=== PATIENT | male | born 1960 | race Caucasian/White ===

== ENCOUNTER 2024-06-17 08:16 | Outpatient (RCR) | payer BC, MEDICARE, SELFPAY ==
--- NOTE | 2024-06-17 08:42 | PTNOTE_ITS ---
PT OP Initial Eval Patient Information Outpatient Physical Therapy Treatment Date: 06/17/24 Visit Reasons: HAND PAIN LEFT Medical Diagnosis: G56.02 M79.642 Treatment Dx #1: L hand weakness Treatment Dx #2: L hand pain Start of Care: 06/17/24 Date of Onset: 05/08/24 Smoking Status Smoking Status: Never smoker Initial Assessment Subjective: Pt is 64 yr old male s/p L CTR presents with low pain level and reports weakness with lifting 40-50 lbs. He is doing most normal activities and ADL's independently with low hand soreness but pain has decreased since sx. PMH: HTN, heart surgery 2018, R CTR 2015 Pt goal: to regain strength in the hand Objective: Aurelio basin tender strength: R: 80 lbs, L 72 lbs Pinch basin tender: 14 lbs L wrist AROM: Flexion: full Extension: full TTP: incision scar is non-TTP to light pressure Assessment: Pt presents with full L wrist ROM, good basin tender strength almost symmetrical with dominant hand, and the incision scar is not hurting. Pt is independent with work duties and ADL's with low pain. Pt doesn't need skilled therapy since he doesn't have impairments and has good function of the L hand. Thank you for your referrals. Short Term and [facility] Goals PT recommends Eval and D/C Treatment Plan PT recommends Eval and D/C but pt has consult with MD today and will advise re: POC Certification Dates: 06/17/24 to 07/17/24 Procedure Charges OP PT Eval Mod Complex 30 minutes: Yes
== END 2024-07-12 23:59 | disposition home or self-care (01) ==
LOC: CPTX 08:16
DX: M79.642 Pain in left hand (principal); R53.1 Weakness; Z98.890 Other specified postprocedural states; I10 Essential (primary) hypertension
CPT/HCPCS: 97162

== ENCOUNTER → 2024-07-14 | Outpatient (CLI) | payer BC, MEDICARE, SELFPAY ==
[2024-07-14 15:57] LABS: Anion Gap 11 (7-16); BUN/Creatinine Ratio 23 Ratio (12-20); Blood Urea Nitrogen 30 mg/dL (9-23); Calcium 9.8 mg/dL (8.3-10.6); Calcium (Corrected) 9.8 mg/dL (8.5-10.1); Carbon Dioxide 24.4 mMol/L (20.0-31.0); Chloride 101 mMol/L (98-107); Creatinine (Component) 1.3 mg/dL (0.6-1.3); Glucose 112 mg/dL (74-106); Osmolality,Calculated 279 (275-295); Phosphorous 3.3 mg/dL (2.4-5.1); Potassium 4.8 mMol/L (3.4-5.1); Sodium 136 mMol/L (136-145); eGFR > 60 See Note
[2024-07-14 16:59] LABS: Collection Type, Urine Clean Catch; Squamous Epithelial Cell,Urine 0 /hpf (0-5)
[2024-07-14 17:51] LABS: Creatinine MALB Rnd Ur 114 mg/dL (30-125); Microalbumin Creat Ratio 11 mg/gCrea (<30); Microalbumin, Random Urine 13 mg/L (0-300)
[2024-07-14 17:54] LABS: Bilirubin,Urine Negative (Negative); Blood,Urine Negative (Negative); Clarity,Urine Clear (Clear/Hazy); Color,Urine Lt-Yellow (Lt Yel-Yel); Glucose, Urine Negative (Negative); Hyaline Casts,Urine < 1 /hpf (0-1); Ketones,Urine Negative (Negative); Leukocyte Esterase,Urine Negative (Negative); Nitrite,Urine Negative (Negative); Protein,Urine Negative (Neg - Trace); RBC,Urine 1 /hpf (0-3); Specific Gravity,Urine 1.021 (1.001-1.035); Urobilinogen,Urine Negative mg/dL (0.0-1.0); WBC,Urine 1 /hpf (0-5)
== END | disposition home or self-care (01) ==
PROVIDERS: PCP Family Medicine; Referring Provider Internal Medicine; Visit Provider Internal Medicine
DX: N17.9 Acute kidney failure, unspecified (principal)
CPT/HCPCS: 36415; 80069; 81001; 82043; 82570